=== PATIENT | male | born 1945 | race Caucasian/White ===

== ENCOUNTER → 2017-05-24 15:04 | Outpatient (CLI) | payer MEDICARE, BC | END | disposition home or self-care (01) | LOC: D.US 15:04 | DX: R58 Hemorrhage, not elsewhere classified (principal); R10.9 Unspecified abdominal pain ==

== ENCOUNTER → 2017-07-29 12:33 | Outpatient (CLI) | payer MEDICARE, BC | END | disposition home or self-care (01) | LOC: D.CT 12:33 | DX: R58 Hemorrhage, not elsewhere classified (principal); R10.9 Unspecified abdominal pain ==

== ENCOUNTER → 2018-07-26 11:04 | Outpatient (CLI) | payer MEDICARE, BC | END | disposition home or self-care (01) | LOC: D.CT 07-21 10:00 | DX: R91.1 Solitary pulmonary nodule (principal) ==